=== PATIENT | female | born 1960 | race Caucasian/White ===

== ENCOUNTER 2017-12-03 07:40 | Emergency (ER) | payer OTHER ==
[~2017-12-03] VITALS: Ht 162.6 cm; Wt 81.6 kg
[2017-12-03] MEDS ORDERED: CLARITIN (07:46)
[2017-12-03] MEDS ORDERED: SINGULAIR (07:46)
--- NOTE | 2017-12-03 07:56 | NUR ---
ekg done, klabs drawn, monitor shows nsr, po2=96% on room air. pt positioned for comfort.
[2017-12-03 08:06] LABS: BASOPHILS % (AUTO) 0.6 % (0.0-2.0); EOSINOPHILS # (AUTO) 0.1 K/uL (0.0-0.7); HEMATOCRIT 41.8 % (31.2-41.9); HEMOGLOBIN 14.2 g/dL (10.9-14.3); LYMPHOCYTES # (AUTO) 1.6 K/uL (20.0-40.0); LYMPHOCYTES % (AUTO) 27.1 % (20.5-51.5); MEAN CORPUSCULAR HEMOGLOBIN 33.2 uug (24.7-32.8); MEAN CORPUSCULAR HGB CONC 34 g/dL (32.3-35.6); MEAN CORPUSCULAR VOLUME 97.7 fL (75.5-95.3); MONOCYTES # (AUTO) 0.4 K/uL (2.0-10.0); MONOCYTES % (AUTO) 6.8 % (0.0-11.0); NEUTROPHILS # (AUTO) 3.8 K/uL (1.8-8.9); NEUTROPHILS % (AUTO) 63.5 % (38.5-71.5); PLATELET COUNT (AUTO) 275 K/uL (179-408); RED BLOOD CELL COUNT(AUTO) 4.28 MIL/uL (3.63-4.92)
[2017-12-03 08:13] LABS: POTASSIUM 5.5 mmol/L (3.5-5.1)
[2017-12-03 08:19] LABS: BILIRUBIN,DIRECT 0.1 mg/dL (0.0-0.2); BILIRUBIN,TOTAL 0.5 mg/dL (0.2-1.0); TOTAL PROTEIN, SERUM 7.5 g/dL (6.4-8.2)
--- NOTE | 2017-12-03 08:51 | NUR ---
mse completed, pt d/c'd home, aci/copy of ekg/cxr/labs results given. pt got dressed ambulated w/o diff/took all belongings.
[2017-12-03 08:53] VITALS: BP 142/82
== END 2017-12-03 08:53 | disposition home or self-care (01) ==
LOC: ER 07:40
DX: R07.9 Chest pain, unspecified (principal)
CPT/HCPCS: 36415; 70030-TC; 71045; 85025; 85730; 93005; A4663